=== PATIENT | male | born 1960 | race Two or more races ===

== ENCOUNTER 2023-12-27 09:48 | Outpatient (CLI) | payer OTHER | END 2023-12-27 09:58 | disposition home or self-care (01) | LOC: MRI 09:48 | PROVIDERS: ATTEND Internal Medicine Nephrology | DX: C76.0 Malignant neoplasm of head, face and neck (principal); C06.9 Malignant neoplasm of mouth, unspecified | CPT/HCPCS: 70542; Q9965 ==